=== PATIENT | female | born 1970 | race Asian ===

== ENCOUNTER 2019-04-15 07:42 | Day surgery (SDC) | payer OTHER ==
[~2019-04-15] VITALS: Ht 154.9 cm; Wt 72.1 kg
[2019-04-15 08:07] VITALS: BP 171/86
[2019-04-15 11:02] VITALS: BP 125/81
== END 2019-04-15 11:20 | disposition home or self-care (01) ==
LOC: GI 07:42 → OR 10:30 → GI 11:20
DX: Z12.11 Encounter for screening for malignant neoplasm of colon (principal); E11.9 Type 2 diabetes mellitus without complications; E66.01 Morbid (severe) obesity due to excess calories; Z68.32 Body mass index [BMI] 32.0-32.9, adult; Z79.84 Long term (current) use of oral hypoglycemic drugs; Z80.0 Family history of malignant neoplasm of digestive organs; Z98.891 History of uterine scar from previous surgery
CPT/HCPCS: 45378; J1200; J1610; J2250; J2310; J3010; J3490